=== PATIENT | female | born 1980 | race American Indian/Alaskan Native ===

== ENCOUNTER 2016-10-19 19:14 | Emergency (ER) | payer OTHER ==
[2016-10-19 19:27] VITALS: BP 132/80
== END 2016-10-19 21:30 | disposition left against medical advice (07) ==
LOC: ED 19:14
DX: R51 Headache (principal); M54.5 Low back pain; H53.8 Other visual disturbances; V89.2XXA Person injured in unspecified motor-vehicle accident, traffic, initial encounter; Y93.9 Activity, unspecified; Y99.9 Unspecified external cause status; Y92.410 Unspecified street and highway as the place of occurrence of the external cause; Z53.21 Procedure and treatment not carried out due to patient leaving prior to being seen by health care provider